=== PATIENT | female | born 1950 | race African-American/Black ===

== ENCOUNTER 2017-07-26 16:01 | Emergency (ER) | payer MEDICARE, OTHER ==
[~2017-07-26] VITALS: Ht 152.4 cm; Wt 78.0 kg
[~2017-07-26 16:01] MED LIST: ALBUTEROL17 GM INH; BAYER ASPIRIN325 M1 PO; CIPRO PO; DIAZEPAM; DIFLUCAN PO; HUMALOG MIX 75/23 ML; HUMALOG100 U/M1; LACTULOSE10 G/15 ML; LACTULOSE10 GM/15 M PO; LASIX; LASIX PO; LIPITOR; LISINOPRIL-HCTZ1 T14 PO; LISINOPRIL2.5 MG; MAXZIDE-25MG TA1 TAB; MOBIC15 MG PO; MULTI VITAMIN1 EACH PO; NEURONTIN; NEURONTIN600 MG PO; NITRO-STAT; NITROGLYGERIN0.4 MG; PLAVIX; PLAVIX PO; PRILOSEC; SIMVASTATIN80 MG PO; TOPROL XL; TRAZODONE HCL100 MG PO; TYLENOL #3
== END 2017-07-26 18:10 | disposition left against medical advice (07) ==
LOC: CED 16:01
DX: Z53.21 Procedure and treatment not carried out due to patient leaving prior to being seen by health care provider (principal)